=== PATIENT | male | born 1955 | race Caucasian/White ===

== ENCOUNTER → 2023-12-27 | Outpatient (CLI) | payer MEDICARE ==
[~2023-12-27] MED LIST: ARTHRITIS PAIN325 MG PO; CRESTOR20 MG PO; HYZAAR 25 MG-101 TAB PO; TENORMIN 2525 MG/TAB PO
== END ==
LOC: MHCPAIN 09:34
DX: M54.81 Occipital neuralgia (principal); M47.812 Spondylosis without myelopathy or radiculopathy, cervical region
CPT/HCPCS: J0665; J1010

== ENCOUNTER → 2024-04-16 | Outpatient (CLI) | payer MEDICARE | LOC: MHCPAIN 12:48 | DX: M54.81 Occipital neuralgia (principal); M47.812 Spondylosis without myelopathy or radiculopathy, cervical region; M54.2 Cervicalgia | CPT/HCPCS: J0665; J1010 ==